=== PATIENT | male | born 1980 | race African-American/Black ===

== ENCOUNTER 2020-08-04 12:30 | Emergency (ER) | payer BC ==
[2020-08-04 12:36] VITALS: BMI 39.5
[2020-08-04] MEDS ORDERED: KETOROLAC TROMETHAMINE 30 MG/1 ML VIAL IVPUSH STA (14:44)
[2020-08-04] MEDS ORDERED: KETOROLAC TROMETHAMINE 30 MG/1 ML VIAL ONE (14:45)
[2020-08-04 15:29] LABS: BASO % 0.4 % (0-2.0); EOS % 0.7 % (0-4.5); HEMATOCRIT 41.1 % (35.4-49); HEMOGLOBIN 13.3 GM/dL (11.7-16.9); LYMPH % 18.7 % (8-40); MCH 27.8 pg (25.7-33.7); MCHC 32.4 g/dl (32.0-35.9); MEAN CELL VOLUME 85.9 fl (80-96); MEAN PLT VOLUME 7.5 fl (7.5-11.1); MONO % 7.2 % (3.8-10.2); PLATELET COUNT 287 K/MM3 (134-434); RBC 4.78 M/mm3 (4.00-5.60); RDW 13.8 % (11.9-15.9); WHITE BLOOD COUNT 7.3 K/mm3 (4.0-10.0)
[2020-08-04 15:47] LABS: CHLORIDE 107 mmol/L (98-107); POTASSIUM 3.8 mmol/L (3.5-5.1); SODIUM 142 mmol/L (136-145)
[2020-08-04 15:50] LABS: ALBUMIN 3.9 g/dl (3.4-5.0); ANION GAP 5 MMOL/L (8-16); BLOOD UREA NITROGEN 10.4 mg/dL (7-18); CO2 30 mmol/L (21-32); GLUCOSE,RANDOM 82 mg/dL (74-106); LIPASE 101 U/L (73-393)
[2020-08-04 15:53] LABS: CREATININE 0.8 mg/dL (0.55-1.3); SGOT/AST 16 U/L (15-37); SGPT/ALT 25 U/L (13-61)
[2020-08-04 15:54] LABS: BILIRUBIN,TOTAL 0.5 mg/dL (0.2-1)
[2020-08-04 15:55] LABS: TOT PROT 7.5 g/dl (6.4-8.2)
[2020-08-04 15:56] LABS: ALK PHOS 93 U/L (45-117)
[2020-08-04 17:12] VITALS: BP 142/89; PULSE 89; TEMP 98.7
== END 2020-08-04 18:01 | disposition home or self-care (01) ==
LOC: JER 12:30
PROC: 3E0337Z Introduction of Electrolytic and Water Balance Substance into Peripheral Vein, Percutaneous Approach (ICD-10-PCS; principal; 2020-08-04)
DX: R07.9 Chest pain, unspecified (principal)
CPT/HCPCS: 36415; 71045-TC-FY; 80053; 82550; 82553; 83690; 84484; 85025; 93005; 93010; 99285-25

== ENCOUNTER 2024-05-01 10:49 | Emergency (ER) | payer BC ==
[2024-05-01 10:58] VITALS: BMI 39.5
[2024-05-01] MEDS ORDERED: KETOROLAC TROMETHAMINE 30 MG/1 ML VIAL ONE (12:35)
[2024-05-01 12:40] LABS: PH,URINE 6.5 (5.0-8.0); URINE APPEARANCE CLEAR; URINE BILIRUBIN NEGATIVE (NEGATIVE); URINE COLOR YELLOW; URINE GLUCOSE (UA) NEGATIVE (NEGATIVE); URINE KETONE NEGATIVE (NEGATIVE); URINE LEUK ESTERASE NEGATIVE (NEGATIVE); URINE NITRITE NEGATIVE (NEGATIVE); URINE PROTEIN NEGATIVE (NEGATIVE); URINE UROBILINOGEN 0.2 mg/dL (0.2-1.0)
[2024-05-01] MEDS: KETOROLAC TROMETHAMINE 30 MG/1 ML VIAL IM ONE (12:47)
[2024-05-01 13:07] VITALS: BP 157/106; PULSE 80; RESP 20; TEMP 98.7
== END 2024-05-01 13:08 | disposition home or self-care (01) ==
LOC: JER 10:49
PROC: 3E0133Z Introduction of Anti-inflammatory into Subcutaneous Tissue, Percutaneous Approach (ICD-10-PCS; principal; 2024-05-01)
DX: R10.30 Lower abdominal pain, unspecified (principal); R35.0 Frequency of micturition
CPT/HCPCS: 81003; 87086; 99284-25